=== PATIENT | male | born 1975 | race Two or more races ===

== ENCOUNTER 2018-05-21 21:08 | Emergency (ER) | payer OTHER ==
[2018-05-21] MEDS ORDERED: NS 1,000 ML IV ONE (22:31)
--- NOTE | 2018-05-21 22:31 | EDPHY ---
H & P Stated Complaint: NOT ABLE TO WORK DUE TO TIRED,DIZZY, ACID REFLUX Time Seen by Provider: 05/21/18 22:23 HPI/ROS: Chief Complaint: Tired, dizzy HPI: 42-year-old male with a history of depression anxiety is presenting with 1 week of general malaise, body aches, lightheadedness. Patient states he has just has a lack of energy. No fevers or chills. No cough. No abdominal pain. No chest pain or shortness of breath. No nausea or vomiting. Does not have a history of similar symptoms in the past. It is affecting his ability to work. He works in the kitchen. No recent weight loss or weight gain. No heat or cold intolerance. No increasing thirst or urination. ROS: 10 systems were reviewed and were negative except those elements noted in the HPI. PMH: Anxiety and depression Social History: No smoking, no alcohol, no recreational drug use Family History: non-contributory Physical Exam: Gen: Awake, Alert, No Distress HEENT: Nose: no rhinorrhea Eyes: PERRLA, EOMI Mouth: Moist mucosa Neck: Supple, no JVD Chest: nontender, lungs clear to auscultation Heart: S1, S2 normal, no murmur Abd: Soft, non-tender, no guarding Back: no CVA tenderness, no midline tenderness Ext: no edema, non-tender Skin: no rash Neuro: CN II-XII intact, Sensation grossly intact, Strength 5/5 in bilateral upper and lower extremities - Personal History Current Tetanus/Diphtheria Vaccine: Yes Current Tetanus Diphtheria and Acellular Pertussis (TDAP): Yes - Medical/Surgical History Hx Asthma: No Hx Chronic Respiratory Disease: No Hx Diabetes: No Hx Cardiac Disease: No Hx Renal Disease: No Hx Cirrhosis: No Hx Alcoholism: No Hx HIV/AIDS: No Hx Splenectomy or Spleen Trauma: No Other PMH: DEPRESSION - Social History Smoking Status: Never smoked Constitutional: Initial Vital Signs Temperature (C) 36.9 C 05/21/18 21:11 Heart Rate 101 H 05/21/18 21:11 Respiratory Rate 18 05/21/18 21:11 Blood Pressure 144/87 H 05/21/18 21:11 O2 Sat (%) 97 05/21/18 21:11 O2 Delivery Mode Room Air Allergies/Adverse Reactions: No Known Allergies Allergy (Unverified 05/21/18 21:13) Home Medications: Medication Instructions Recorded Hydrocodone Bit/Acetaminophen 1 - 2 tab PO Q4 PRN #20 tab 05/08/11 [Vicodin 5/500] oxyCODONE/APAP 5/325 [Percocet 1 tab PO Q6 #18 tab 07/11/11 5/325] Xanax 01/12/15 Ondansetron Odt [Zofran Odt 4 mg 4 mg PO Q4PRN PRN #10 tab 09/23/15 (*)] Pantoprazole Sodium [Protonix] 40 mg PO DAILY #30 tab 09/23/15 ALPRAZolam [Xanax 1 MG (*)] 1 mg PO BID 05/21/18 Citalopram [CeleXA] 40 mg PO 05/21/18 Medical Decision Making ED Course/Re-evaluation: 42-year-old male presenting with general malaise and fatigue. Laboratory evaluations are unremarkable. Vital signs are unremarkable. Physical exam is unremarkable. He is feeling improved after IV hydration. Abdomen is soft and benign. Plan will be to discharge with follow-up with primary care physician, return for any concerns. I do not currently see a any findings to explain the symptoms. No evidence of acute emergent medical process. - Data Points Laboratory Results: Laboratory Results 05/21/18 21:58 05/21/18 21:58 05/21/18 05/21/18 05/21/18 21:58 21:58 13:54 WBC 11.16 10^3/uL H 10^3/uL (3.80-9.50) RBC 5.58 10^6/uL 10^6/uL (4.40-6.38) Hgb 15.0 g/dL g/dL (13.7-17.5) Hct 44.0 % % (40.0-51.0) MCV 78.9 fL L fL (81.5-99.8) MCH 26.9 pg L pg (27.9-34.1) MCHC 34.1 g/dL g/dL (32.4-36.7) RDW 12.8 % % (11.5-15.2) Plt Count 305 10^3/uL 10^3/uL (150-400) MPV 8.8 fL fL (8.7-11.7) Neut % (Auto) 48.5 % % (39.3-74.2) Lymph % (Auto) 38.5 % % (15.0-45.0) [place] % (Auto) 9.5 % % (4.5-13.0) Eos % (Auto) 2.4 % % (0.6-7.6) Baso % (Auto) 0.6 % % (0.3-1.7) Nucleat RBC Rel Count 0.0 % % (0.0-0.2) Absolute Neuts (auto) 5.40 10^3/uL 10^3/uL (1.70-6.50) Absolute Lymphs (auto) 4.30 10^3/uL H 10^3/uL (1.00-3.00) Absolute Monos (auto) 1.06 10^3/uL H 10^3/uL (0.30-0.80) Absolute Eos (auto) 0.27 10^3/uL 10^3/uL (0.03-0.40) Absolute Basos (auto) 0.07 10^3/uL 10^3/uL (0.02-0.10) Absolute Nucleated RBC 0.00 10^3/uL 10^3/uL (0-0.01) Immature Gran % 0.5 % % (0.0-1.1) Immature Gran # 0.06 10^3/uL 10^3/uL (0.00-0.10) Sodium 135 mEq/L mEq/L (135-145) Potassium 4.8 mEq/L mEq/L (3.3-5.0) Chloride 102 mEq/L mEq/L (97-110) Carbon Dioxide 23 mEq/l mEq/l (22-31) Anion Gap 10 mEq/L mEq/L (8-16) BUN 16 mg/dL mg/dL (7-23) Creatinine 0.7 mg/dL mg/dL (0.7-1.3) Estimated GFR > 60 Glucose 88 mg/dL mg/dL (70-100) Calcium 9.4 mg/dL mg/dL (8.5-10.4) Specimen Hemolysis 146 Urine Color YELLOW Urine Appearance CLEAR Urine pH 5.0 (5.0-7.5) Ur Specific [place] 1.021 (1.002-1.030) Urine Protein NEGATIVE (NEGATIVE) Urine Ketones NEGATIVE (NEGATIVE) Urine Blood NEGATIVE (NEGATIVE) Urine Nitrate NEGATIVE (NEGATIVE) Urine Bilirubin NEGATIVE (NEGATIVE) Urine Urobilinogen NEGATIVE EU EU (0.2-1.0) Ur Leukocyte Esterase NEGATIVE (NEGATIVE) Urine Glucose NEGATIVE (NEGATIVE) Medications Given: Discontinued Medications Sodium Chloride (Ns) 1,000 mls @ 0 mls/hr IV ONCE ONE; Wide Open PRN Reason: Protocol Stop: 05/21/18 22:32 Last Admin: 05/21/18 23:01 Dose: 1,000 mls Departure - Departure Disposition: Home, Routine, Self-Care Clinical Impression: Fatigue Condition: Good Instructions: Fatigue (ED) Additional Instructions: Make sure to drink plenty of fluids in get plenty of rest. Follow up with her primary care physician in 3-4 days for re-evaluation. Return to the emergency department for high fevers, chest pain, shortness of breath, abdominal pain, uncontrolled vomiting, or any other concerns. Referrals: [facility],. [Clinic] - As per Instructions
[2018-05-21 23:13] LABS: PLATELET COUNT 305 10^3/uL (150-400)
[2018-05-22 00:43] VITALS: BP 139/80
== END 2018-05-22 00:41 | disposition home or self-care (01) ==
DX: R53.83 Other fatigue (principal); R42 Dizziness and giddiness